=== PATIENT | female | born 1985 | race Asian ===

== ENCOUNTER 2017-04-15 06:40 | Emergency (ER) | payer OTHER ==
[~2017-04-15] VITALS: Ht 157.5 cm; Wt 45.0 kg
[2017-04-15 06:41] VITALS: BP 105/59; PULSE 84; RESP 16; TEMP 97.6; O2SAT 100
[2017-04-15 07:42] LABS: BACTERIA, URINE RARE /hpf; BILIRUBIN, URINE NEG (NEG); BLOOD, URINE NEG (NEG); GLUCOSE,URINE NEG (NEG); KETONE, URINE TRACE mg/dL (NEG); MUCUS URINE FEW /lpf (OCC); NITRITE,URINE NEG (NEG); PH, URINE 5.5 (5.0-8.5); SQUAMOUS EPITHELIAL CELL URINE 14 /hpf (0-5); URINE COLOR YELLOW (YELLW/STRAW); URINE LEUKOCYTE ESTERASE SMALL (NEG)
[2017-04-15] MEDS ORDERED: ACETAMINOPHEN 500 MG CPLT PO ONE (07:45)
--- NOTE | 2017-04-15 07:57 | PD ---
HPI Chief Complaint: Complaint Time Seen by Provider: 07:13 Travel History International Travel<30 days: No Contact w/Intl Traveler<30days: No Traveled to known affect area: No History of Present Illness HPI The patient was seen and examined in the presence of the nurse. This patient complains of pain in the back. Duration one day. Bilateral low back pain. No injury. It is worse when she lies flat. No fever or dysuria or hematuria. She has history of kidney infection and was worried that she was having a kidney infection. She is breast-feeding currently. PFSH Past Medical History Asthma: Yes Genitourinary: Yes (UTI) Musculoskeletal: Yes (BEGINING OSTEOPOROSIS) ?: Unknown LMP: 03/22/17 Past Surgical History Tonsillectomy: Yes (T&A) Other Surgery: Yes (BREAST AUGMENTATION) Social History Alcohol Use: No Tobacco Use: No Substance Use: No Allergies-Medications (Allergen,Severity, Reaction): Coded Allergies: Penicillins (Verified Allergy, Severe, Shortness of Breath, 04/15/17) milk (Verified Adverse Reaction, Intermediate, Diarrhea, 04/15/17) Reported Meds & Prescriptions Reported Meds & Active Scripts Active No Active Prescriptions or Reported Medications Review of Systems HENT: No: Headaches Cardiovascular: No: Chest Pain or Discomfort Respiratory: No: Cough Gastrointestinal: No: Vomiting Physical Exam Narrative GASTROINTESTINAL: Abdomen soft, non-tender, nondistended. Positive bowel sounds. No hepato-splenomegaly, or palpable masses. No guarding. SKIN: Focused skin assessment reveals no rash or ulcers. Skin is warm and dry. Palpation shows no induration or nodules. Back: No midline tenderness. No bruising or swelling. There is some vague lumbar soreness bilaterally Data Data Last Documented VS Vital Signs Date Time Temp Pulse Resp B/P (MAP) Pulse Ox O2 Delivery O2 Flow Rate FiO2 04/15/17 06:41 97.6 84 16 105/59 (74) 100 Room Air Orders Orders Urinalysis - C+S If Indicated (04/15/17 07:16) Acetaminophen (Tylenol) (04/15/17 07:45) Labs Laboratory Tests Test 04/15/17 07:23 Urine Color YELLOW Urine Turbidity HAZY Urine pH 5.5 Urine Specific [place] 1.029 Urine Protein TRACE mg/dL Urine Glucose (UA) NEG mg/dL Urine Ketones TRACE mg/dL Urine Occult Blood NEG Urine Nitrite NEG Urine Bilirubin NEG Urine Urobilinogen LESS THAN 2.0 MG/DL Urine Leukocyte Esterase SMALL Urine RBC 3 /hpf Urine WBC 4 /hpf Urine Squamous Epithelial Cells 14 /hpf Urine Bacteria RARE /hpf Urine Mucus FEW /lpf Microscopic Urinalysis Comment CULT NOT INDICATED MDM Medical Decision Making Medical Screen Exam Complete: Yes Emergency Medical Condition: Yes Medical Record Reviewed: Yes Differential Diagnosis Pyelonephritis, lumbar strain, sciatica Narrative Course I have reviewed the patient's electronic medical record. Urinalysis does not meet standards to culture, not consistent with pyelonephritis Patient is having bilateral low back pain without injury or neurologic deficit. I don't see indication for emergent imaging Presentation not consistent with kidney stone Etiology not entirely clear but seems most likely to be musculoskeletal in origin I don't think labs or imaging would be helpful here Recommend follow-up with primary physician Return if she develops fever or worsening of pain Diagnosis Primary Impression: Low back pain Qualified Codes: M54.5 - Low back pain Additional Instructions: The patient was advised to follow up with their physician and return if they worsen. Med/Other Pt SpecificInfo: Other Scripts No Active Prescriptions or Reported Meds Disposition: DISCHARGE HOME Condition: Stable Scott Cintron MD Apr 15, 2017 07:57
== END 2017-04-15 08:46 | disposition home or self-care (01) ==
LOC: NEPC 06:40
DX: M54.5 Low back pain (principal); J45.909 Unspecified asthma, uncomplicated; M81.0 Age-related osteoporosis without current pathological fracture
CPT/HCPCS: 81001; 99283